=== PATIENT | male | born 1965 | race Caucasian/White ===

== ENCOUNTER 2023-08-05 14:02 | Emergency (ER) | payer OTHER, SELFPAY ==
[2023-08-05 14:23] VITALS: BP 150/100; PULSE 97; RESP 18; TEMP 36.7; O2SAT 97; BMI 31.0
--- NOTE | 2023-08-05 14:51 | CT_ITS ---
[address] [address] Patient Name: ANTONELLA SOTO MRN: [id number] date: 1965 Sex: M Assigned Patient Location: ER Current Patient Location: ER Accession/Order Number: [id number] Exam Date: 08/05/2023 15:09 Report Date: 08/05/2023 15:32 At the request of: NATHAN TAFOYA Procedure: CT cervical spine wo con EXAMINATION: CT cervical spine wo con TECHNIQUE: Axial CT images were obtained through the cervical spine. Sagittal and coronal reformatted images were also obtained. Dose reduction techniques were achieved by using automated exposure control and/or adjustment of mA and/or kV according to patient size and/or use of iterative reconstruction technique. HISTORY: Cervical radiculopathy. COMPARISON: None. FINDINGS: Bones: No fracture Alignment: The alignment is anatomic. No acute subluxation. Arthritic changes: Moderate spondylosis of the lower cervical spine. Disc spaces: No gross disc herniation given limitation of CT scan. Soft tissues: No soft tissue mass or large hematoma. CT/CT cervical spine wo con IMPRESSION: No acute fracture or subluxation. Electronically authenticated by: KUSH CHAU Date: 08/05/2023 15:32
--- NOTE | 2023-08-05 14:52 | ED.GENADUL1 ---
HPI - General Adult General Chief complaint: Extremity Injury, Upper Stated complaint: LEFT ARM PAIN Time Seen by Provider: 08/05/23 14:45 Source: patient Mode of arrival: walk-in Limitations: no limitations History of Present Illness HPI narrative: Patient is a 58-year-old male who presents to the emergency department for 2-week history of pain in the left upper extremity. Patient states he has been having ongoing pain to the left trapezius area radiating into the left shoulder and down the left arm. He feels as though the Arm swells and he occasionally feels as though his hand is red. Pain is worse with movement of the left shoulder. He was seen by his [place] doctor who told him that there was nothing wrong. 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 He was referred to orthopedics but states he has been calling the office every day for 2 weeks and no one has picked up. He has no falls or injuries. He received a shot of Toradol at the [place] and at [facility] department and was not discharged home with any medications. He also takes medications for gout, metformin and cholesterol. Related Data Previous Rx's Medication Instructions Recorded gabapentin 100 mg capsule 100 mg PO BID #14 caps 08/05/23 methocarbamol 750 mg tablet 750 mg PO TID PRN pain #20 tabs 08/05/23 methylprednisolone 4 mg tablets in See Rx Instructions .Route 08/05/23 a dose pack (Medrol (Tad)) .COMPLEX #21 ea Allergies Allergy/AdvReac Type Severity Reaction Status Date / Time No Known Drug Allergies Allergy Verified 08/05/23 14:23 Review of Systems ROS Constitutional Denies: fever or chills Ears, nose, mouth, and throat Denies: throat pain, neck pain or nasal congestion Cardiovascular Denies: chest pain Respiratory Denies: shortness of breath or cough Gastrointestinal Denies: nausea or vomiting Genitourinary Denies: painful urination Musculoskeletal Reports: extremity pain and extremity swelling; Denies: back pain or neck pain Integumentary/Breast Denies: rash Neurological Denies: headache Hematologic/Lymphatic Denies: easy bruising or easy bleeding PFSH PFSH Social History Smoking status: Former smoker Exam Narrative Exam Narrative: Gen.: Awake, alert, in no distress Head: Normocephalic, atraumatic ENT: Moist mucous membranes; Tenderness over the left trapezius muscle of the left shoulder with no bony point tenderness of the posterior cervical spine Respiratory: No respiratory distress Extremities: Pain with range of motion at the left shoulder, tenderness over the left trapezius muscle. 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 Psych: Normal mood and affect Neuro: No focal neuro deficit Skin: Warm, dry, intact Constitutional Vital Signs, click to edit/add: Last Vital Signs Temp 98.0 F 08/05/23 14:23 Pulse 97 H 08/05/23 14:23 Resp 18 08/05/23 14:23 BP 150/100 H 08/05/23 14:23 Pulse Ox 97 08/05/23 14:23 O2 Del Method Room Air 08/05/23 14:23 Course Vital Signs Vital signs: Vital Signs Temperature 98.0 F 08/05/23 14:23 Pulse Rate 97 H 08/05/23 14:23 Respiratory Rate 18 08/05/23 14:23 Blood Pressure 150/100 H 08/05/23 14:23 Pulse Oximetry 97 08/05/23 14:23 Oxygen Delivery Method Room Air 08/05/23 14:23 Temperature 98.0 F 08/05/23 14:23 Pulse Rate 97 H 08/05/23 14:23 Respiratory Rate 18 08/05/23 14:23 Blood Pressure 150/100 H 08/05/23 14:23 Pulse Oximetry 97 08/05/23 14:23 Oxygen Delivery Method Room Air 08/05/23 14:23 Medical Decision Making MDM Narrative Medical decision making narrative: Patient with moderate spondylosis of the lower cervical spine. His exam is consistent with cervical radiculopathy, possibly a pinched nerve. I explained this to him at the bedside. He is discharged home on medications to help with symptoms, he is given a Medrol Dosepak, gabapentin 3 times daily and a muscle relaxant. Follow-up with PCP and return to the ER if symptoms change or worsen. He is referred to local orthopedics, Dr. Haji and an appointment was set up for him for 10 AM on Friday. Return to the emergency department if symptoms change or worsen. Medical Records Medical records reviewed: Yes I reviewed the patient's medical records Imaging Data CT cervical: Attestation: I have reviewed the pertinent imaging results. Radiologist's impression: ITS Impressions Cervical Spine CT 08/05/23 14:51 IMPRESSION: No acute fracture or subluxation. Electronically authenticated by: KUSH CHAU Date: 08/05/2023 15:32 Discharge Plan Discharge Chief Complaint: Extremity Injury, Upper Clinical Impression: Cervical radiculopathy Patient Disposition: Home, Self-Care Time of Disposition Decision: 16:54 Condition: Good Prescriptions / Home Meds: New methocarbamol 750 mg tablet 750 mg PO TID PRN (Reason: pain) Qty: 20 0RF methylprednisolone [Medrol (Tad)] 4 mg tablets,dose pack See Rx Instructions .ROUTE .COMPLEX Qty: 21 0RF Rx Instructions: Taper as directed gabapentin 100 mg capsule 100 mg PO BID Qty: 14 0RF Instructions: Cervical Radiculopathy (ED) Additional Instructions: Please follow up with Dr. Haji's office on Friday at 10am Stand Alone Forms: Portal Instructions Referrals: Physician,Non-Staff, [Primary Care Provider] - 1 week Lewis Haji MD [Physician] - 08/11/23 10:00 am
== END 2023-08-05 17:15 | disposition home or self-care (01) ==
PROVIDERS: Emergency Provider Emergency Medicine Emergency Medical Services
DX: M47.22 Other spondylosis with radiculopathy, cervical region (principal); M10.9 Gout, unspecified; Z79.84 Long term (current) use of oral hypoglycemic drugs; Z87.891 Personal history of nicotine dependence
CPT/HCPCS: 72125; 99284

== ENCOUNTER 2023-08-15 08:42 | Outpatient (OUT) | payer SELFPAY ==
--- NOTE | 2023-08-15 | XR_ITS ---
The [address] [address] Patient Name: ANTONELLA SOTO MRN: [id number] date: 1965 Sex: M Assigned Patient Location: Current Patient Location: Accession/Order Number: [id number] Exam Date: 08/15/2023 08:45 Report Date: 08/15/2023 11:29 At the request of: ANCA EDWARDS Procedure: XR cervical spine 5V EXAMINATION: XR cervical spine 5V HISTORY: NECK PAIN COMPARISON: No relevant comparison available. FINDINGS: BONES: Neutral projection demonstrates 2 mm retrolisthesis of C5 in relation to C6. Moderate degenerative spondylosis and facet osteoarthropathy DISC SPACES: Multilevel disc space narrowing most C5-C6 PARASPINOUS: Negative. No paraspinous abnormality is seen. OTHER: No transient spondylolisthesis with flexion or extension. XR/XR cervical spine 5V IMPRESSION: Moderate degenerative changes C5-C6 Electronically authenticated by: CASEY CLOUD Date: 08/15/2023 11:29
--- OUTSIDE RECORDS SUMMARY | 2023-08-15 08:46 | XMS_ITS | CCD ---
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 Name Role Phone REQUEST, DR NONE LISTED Primary Care Unavaila wiliam POWER, DR RAMOS Admitting Unavailable TONO, DR RAMOS Attending Unavailable TONO, DR RAMOS Consulting Unavailable Karie Figueroa Consulting Unavailable REQUEST, NONE LISTED Primary Care Unavaila wiliam MENARD, RUSTY Admitting Unavailable DERIAN, RUSTY Attending Unavailable DERIAN, RUSTY Consulting Unavailable NIKI, DR ASHLEE Garcia Consulting Unavailable NIKI, DR ASHLEE Garcia Admitting Unavailable REQUEST, NONE LISTED Primary Care Unavailsusanne PRINCE, DR ASHLEE Garcia Attending Unavailable Lily Yin Consulting Unavailable Pascale Larios Unavailable DO Rajan Andersen Primary Care Provider DO Ish Carty Emergency Provider SUHAS Gavin Emergency Provider Lupe Gavin Admitting Unavailable Lupe Gavin Attending Unavailable Rajan Andersen Primary Care Unavailable Ish Carty Admitting Unavailable Ish Carty Attending Unavailable Rajan Andersen Primary Care Unavailable RAJAN ANDERSEN Primary Care Unavailable CASEY BOUCHER Attending Unavailable CASEY BOUCHER Referring Unavailable RAJAN ANDERSEN Primary Care Unavailable Allergies Allergy Classification Reported Allergen(s) Allergy Type Date of Onset Reaction(s) Facility (4 sources) Ammonia; Translations: [ammonia] Drug Allergy 1 Difficulty Breathing [facility] (4 sources) Bleach (Sodium Hypochlorite); Translations: [Bleach (Sodium Hypochlorite)] Allergy to substance 1 Difficulty Breathing [facility] Medications Current Medications Medication Drug Class(es) Dates Sig (Normalized) Sig (Original) 12 hr guaiFENesin 1200 mg extended release oral tablet (1 source) Start: 03-24-2023 take 1 tablet by mouth twice daily, then take 1 tablet by mouth every twelve hours Guaifenesin (Mucinex) 1,200 mg tablet extended release 12hr Active 1200 MG PO Twice daily March 24, 2023 12:00am ketorolac tromethamine 10 mg oral tablet (1 source) Nonsteroidal Anti-inflammatory Drug, Cyclooxygenase Inhibitor Ketorolac Tromethamine 10 MG Oral for 2 Days Active omeprazole 10 mg delayed release oral capsule (1 source) Proton Pump Inhibitor Start: 10-19-2021 take 1 capsule by mouth once daily Omeprazole 10 MG 1 capsule 30 minutes before morning meal Orally Once a day for 30 day(s) October, Active 12 hr orphenadrine citrate 100 mg extended release oral tablet (1 source) Muscle Relaxant Orphenadrine Citrate ER 100 MG Oral for 5 Days Active Problems Active Problems Problem Classification Problem Date Documented Date Episodic/Chronic Other lower respiratory disease (2 sources) Hemoptysis; Translations: [Hemoptysis] 12-25-2022 Episodic Other nervous system disorders (1 source) Other chronic pain; Translations: [OTHER CHRONIC PAIN] Onset: 04-02-2021 Chronic Other nervous system disorders (1 source) Unspecified mononeuropathy of bilateral lower limbs; Translations: [UNS MONONEUROPATHY ISIDRO LOWER LIMBS] Onset: 04-02-2021 Chronic Other non-traumatic joint disorders (1 source) Pain in right shoulder; Translations: [Pain in right shoulder] Onset: 07-22-2023 Episodic Other non-traumatic joint disorders (1 source) Pain in left shoulder; Translations: [Pain in left shoulder] Onset: 07-22-2023 Episodic Other non-traumatic joint disorders (1 source) Shoulder pain Onset: 07-22-2023 Episodic Spondylosis; intervertebral disc disorders; other back problems (1 source) Spondylosis without myelopathy or radiculopathy, lumbosacral region; Translations: [SPONDYLS W/O MYELO-/RADICULOP LS] Onset: 04-02-2021 Chronic Unclassified (3 sources) LOW BACK PAIN, UNSPECIFIED; Translations: [LOW BACK PAIN, UNSPECIFIED] Onset: 04-02-2021 Unclassified (1 source) Cough, unspecified; Translations: [Cough, unspecified] Onset: 03-24-2023 Unclassified (1 source) ill Onset: 07-22-2023 Viral infection (1 source) Disease caused by 2019-nCoV; Translations: [COVID-19] 03-24-2023 Episodic Viral infection (1 source) COVID-19; Translations: [COVID-19] Onset: 10-08-2020 Past or Other Problems Problem Classification Problem Date Documented Da te Episodic/Chronic Nausea and vomiting (4 sources) Nausea with vomiting, unspecified; Translations: [NAUSEA WITH VOMITING UNSPECIFIED] Onset: 10-05-2020 Episodic Nonspecific chest pain (3 sources) Chest pain; Translations: [Chest pain, unspecified] Onset: 12-25-2022 12-25-2022 Episodic Other lower respiratory disease (4 sources) Cough; Translations: [COUGH] Onset: 09-28-2020 Episodic Other lower respiratory disease (1 source) Shortness of breath; Translations: [SHORTNESS OF BREATH] Onset: 10-02-2020 Episodic Other lower respiratory disease (1 source) Hemoptysis; Translations: [Hemoptysis] Onset: 12-25-2022 Episodic Sprains and strains (1 source) Unspecified sprain of left wrist, subsequent encounter Onset: 10-26-2021 Resolved: 10-26-2021 Episodic Unclassified (1 source) LOW BACK PAIN, UNSPECIFIED; Translations: [LOW BACK PAIN, UNSPECIFIED] Onset: 03-30-2021 Results Test Name Value Interpretation Reference Range Facility XR SHOULDER LT MIN 2 VWSon 0 07-22-2023 XR SHOULDER LT MIN 2 VWS XR SHOULDER LT MIN 2 VWS CLINICAL INFORMATION: shoulder pain TECHNIQUE: XR SHOULDER LT MIN 2 VWS 3 views left shoulder were obtained. AC joint degenerative changes noted. Humeral head shows normal articulation with the glenoid. There is no fracture or dislocation. IMPRESSION: AC joint degenerative changes. Finalized by Rickey Rangel MD on 07/22/2023 8:[address] [facility] BioFire Detectedon 3 BioFire Detected Detected Critically abnormal Not Detecte [facility] Comment on above: Result Comment: This is a duplicate RP2.1 COVID (PCR) result to be used for statistical tracking purpose only. PERFORMED BY: [facility] [address] [facility] [address] PATHOLOGIST PLANNING TECHNICIAN BEBA MCKEON M.D. Performed By: #### C BC, PT, BNP, CK, DDIMER, HS TROP, BMP, PTT #### [facility] [address] [place] [address] [facility] COVID-19 Detected/Not Detect edOrdered By: Lupe Gavin on 03-24-2023 SARS-CoV-2 (COVID-19) RNA DIVYA+non-probe Ql (Nph) Detected Not Detecte [facility] Comment on above: This is a duplicate RP2.1 COVID (PCR) result to be used for statistical tracking purpose only. Respiratory (Upper) Panel, P CRon 03-24-2023 Respiratory (Upper) Panel, PCR Results called at 1707 on 03/24/23. Adenovirus Not detected Bordetella parapertussis Not detected Chlamydia pneumoniae Not detected Coronavirus 229E Not detected Coronavirus HKU1 Not detected Coronavirus NL63 Not detected Coronavirus OC43 Not detected Influenza A Not detected Influenza B Not detected Human Metapneumovirus Not detected Mycoplasma pneumoniae Not detected Parainfluenza Virus 1 Not detected Parainfluenza Virus 2 Not detected Parainfluenza Virus 3 Not detected Parainfluenza Virus 4 Not detected Bordetella pertussis-ptxP Not detected Human Rhino/Enterovirus Not detected Resp. Syncytial Virus Not detected COVID19 Blank Space -- COVID19 Det Results Detected results will only be called to COVID19 Det Results Providers for the following groups of patients: COVID19 Det Results Pre-Surgical Testing, Emergency Room, and Inpatients. COVID19 Blank Space -- COVID-19 Detected/Not Detected Detected Blank Space -- FLUA TEST INCLUDES Influenza A tests for the following clinically FLUA TEST INCLUDES significant subtypes: FLUA TEST INCLUDES - Influenza A FLUA TEST INCLUDES - Influenza A H1 FLUA TEST INCLUDES - Influenza A H1 2009 FLUA TEST INCLUDES - Influenza A H3 Blank Space -- PERFORMED BY: [place] [address] PATHOLOGIST PLANNING TECHNICIAN BEBA MCKEON M.D. [facility] Comment on above: Performed By: #### C BC, PT, BNP, CK, DDIMER, HS TROP, BMP, PTT #### [facility] [address] [place] [address] Respiratory pathogens DNA an d RNA panel - Nasopharynx by DIVYA with non-probe detectionOrdered By: Lupe Gavin on 03-24-2023 Respiratory pathogens DNA and RNA panel DIVYA+non-probe (Nph) [facility] Activated partial thrombopla stin time (aPTT) in platelet poor plasma by coagulation aOrdered By: Ish Carty on 12-25-2022 aPTT Coag (PPP) [Time] 26.7 s 25.1-36.5 [facility] B-Type Natriuretic Peptideon 12-25-2022 Natriuretic peptide B (Bld) [Mass/Vol] 3.0 pg/mL Low 5-100 [facility] Comment on above: Result Comment: PERF ORMED BY: [place] [address] PATHOLOGIST PLANNING TECHNICIAN BEBA MCKEON M.D. Performed By: #### C BC, PT, BNP, CK, DDIMER, HS TROP, BMP, PTT #### [place] [id number] [facility] Basic Metabolic Panelon 12-14 Anion gap [Moles/Vol] 11.4 mmol/L Normal 6.0-15.0 [facility] Comment on above: Performed By: #### C BC, PT, BNP, CK, DDIMER, HS TROP, BMP, PTT #### [facility] [address] Calcium [Mass/Vol] 9.2 mg/dL Normal 8.6-10.3 [facility] Comment on above: Performed By: #### C BC, PT, BNP, CK, DDIMER, HS TROP, BMP, PTT #### [facility] [address] Chloride [Moles/Vol] 103 mmol/L Normal 98-107 [facility] Comment on above: Performed By: #### C BC, PT, BNP, CK, DDIMER, HS TROP, BMP, PTT #### [facility] [address] CO2 [Moles/Vol] 26.9 mmol/L Normal 21.0-31.0 [facility] Comment on above: Performed By: #### C BC, PT, BNP, CK, DDIMER, HS TROP, BMP, PTT #### [facility] [address] Creatinine [Mass/Vol] 0.83 mg/dL Normal 0.70-1.30 [facility] Comment on above: Performed By: #### C BC, PT, BNP, CK, DDIMER, HS TROP, BMP, PTT #### [facility] [address] Creatinine Clr Calc Pharmacy 118.20 Normal [facility] Comment on above: Result Comment: PERF ORMED BY: [place] [address] PATHOLOGIST PLANNING TECHNICIAN BEBA MCKEON M.D. Performed By: #### C BC, PT, BNP, CK, DDIMER, HS TROP, BMP, PTT #### [address] GFR/1.73 sq M.predicted MDRD (S/P/Bld) [Vol rate/Area] mL/min/{1.73_m2} Normal [facility] Comment on above: Performed By: #### C BC, PT, BNP, CK, DDIMER, HS TROP, BMP, PTT #### [facility] [address] Glucose [Mass/Vol] 274 mg/dL High 70-100 [facility] Comment on above: Result Comment: [facility] Glucose Reference Range is dependent on time and content of last meal. Glucose of more than 200 mg/dL in a nonstressed, ambulatory subject supports the diagnosis of Diabetes Mellitus. ADA recommended reference range Performed By: #### C BC, PT, BNP, CK, DDIMER, HS TROP, BMP, PTT #### [facility] [address] Potassium [Moles/Vol] 4.3 mmol/L Normal 3.5-5.1 [facility] Comment on above: Performed By: #### C BC, PT, BNP, CK, DDIMER, HS TROP, BMP, PTT #### [facility] [address] [place] [address] Sodium [Moles/Vol] 137 mmol/L Normal 136-145 [facility] Comment on above: Performed By: #### C BC, PT, BNP, CK, DDIMER, HS TROP, BMP, PTT #### [facility] [address] Urea nitrogen [Mass/Vol] 15 mg/dL Normal 7-25 [facility] Comment on above: Performed By: #### C BC, PT, BNP, CK, DDIMER, HS TROP, BMP, PTT #### [facility] [address] [place] [address] [place] Basophils Auto (Bld) [#/Vol] Ordered By: Ish Carty on 12-25-2022 Basophils (Bld) [#/Vol] 0.0 10*3/uL 0.0-0.2 [facility] Basophils/100 WBC Auto (Bld) Ordered By: Ish Carty on 12-25-2022 Basophils/100 WBC (Bld) 0.6 % . [facility] CT chest wo conon 12-25-2022 CT chest wo con [facility] [place] [address] [place] [address] CT Scan Report Signed Patient: Antonella Richter MR#: [id number] : 1965 Acct:[id number] Age/Sex: 57 / M ADM Date: 12/25/22 Loc: ER Room: Type: [facility] ER Attending Dr: Copies to: Ish Carty DO Ordering Provider: Ish Carty DO Date of Service: 12/25/22 CT/CT chest wo con: chest pain CT CHEST WITHOUT CONTRAST COMPARISON: Chest x-ray 12/25/2022 CLINICAL DATA: Left-sided chest pain and hemoptysis. Spiral images were obtained through the chest without contrast. Images were reviewed using both narrow and wide window settings. This CT exam was performed using one or more following dose reduction techniques: Automated exposure control, adjustment of the mA and/or kV according to patient size, or use of iterative reconstruction technique. The heart is within normal limits for size. There is no pericardial effusion. There is minimal coronary artery plaque. No aortic aneurysm is identified. No enlarged lymph nodes are seen. There is subtle levoscoliotic curvature and minor endplate spurring. There is elevation of the right hemidiaphragm. Bibasilar atelectasis and/or scarring is noted. There is no additional consolidation. No pleural effusion or pneumothorax is seen. No pulmonary nodularity is noted. Images through the upper abdomen show no contributory findings. CT/CT chest wo con IMPRESSION: BIBASILAR ATELECTASIS AND/OR SCARRING. NO OTHER ACUTE FINDINGS. Impression dictated by: Lilibeth Bunn M.D.12/25/2022 1:05 PM Dictation Location: [place] [address] Transcribed By: [facility] 12/25/22 1305 Dictated By: Lilibeth Bunn MD 12/25/22 1249 Signed By: 12/25/22 1305 Normal [facility] Calcium [Mass/volume] in Ser um or PlasmaOrdered By: Ish Carty on 12-25-2022 Calcium [Mass/Vol] 9.2 mg/dL 8.6-10.3 [facility] Carbon dioxide, total [Moles /volume] in Serum or PlasmaOrdered By: Ish Carty on 12-25-2022 CO2 [Moles/Vol] 26.9 mmol/L 21.0-31.0 [facility] Chloride [Moles/volume] in S vic or PlasmaOrdered By: Ish Carty on 12-25-2022 Chloride [Moles/Vol] 103 mmol/L 98-107 [facility] Complete Blood Count Auto Di ffon 12-25-2022 Basophils (Bld) [#/Vol] 0.0 10*3/uL Normal 0.0-0.2 [facility] Comment on above: Result Comment: PERF ORMED BY: [place] [address] PATHOLOGIST PLANNING TECHNICIAN BEBA MCKEON M.D. Performed By: #### C BC, PT, BNP, CK, DDIMER, HS TROP, BMP, PTT #### [address] Basophils/100 WBC (Bld) 0.6 % Normal . [facility] Comment on above: Performed By: #### C BC, PT, BNP, CK, DDIMER, HS TROP, BMP, PTT #### [address] Eosinophils (Bld) [#/Vol] 0.1 10*3/uL Normal 0.0-0.45 [facility] Comment on above: Performed By: #### C BC, PT, BNP, CK, DDIMER, HS TROP, BMP, PTT #### [address] Eosinophils/100 WBC (Bld) 1.1 % Normal . [facility] Comment on above: Performed By: #### C BC, PT, BNP, CK, DDIMER, HS TROP, BMP, PTT #### [address] Erythrocyte distribution width (RBC) [Ratio] 12.6 % Normal 12.0-14.8 [facility] Comment on above: Performed By: #### C BC, PT, BNP, CK, DDIMER, HS TROP, BMP, PTT #### [address] Hematocrit (Bld) [Volume fraction] 43.4 % Normal 38.8-50.0 [facility] Comment on above: Performed By: #### C BC, PT, BNP, CK, DDIMER, HS TROP, BMP, PTT #### [address] Hemoglobin (Bld) [Mass/Vol] 15.1 g/dL Normal 13.0-17.0 [facility] Comment on above: Performed By: #### C BC, PT, BNP, CK, DDIMER, HS TROP, BMP, PTT #### [address] Lymphocytes (Bld) [#/Vol] 1.7 10*3/uL Normal 1.00-4.8 [facility] Comment on above: Performed By: #### C BC, PT, BNP, CK, DDIMER, HS TROP, BMP, PTT #### [address] Lymphocytes/100 WBC (Bld) 29.4 % Normal . [facility] Comment on above: Performed By: #### C BC, PT, BNP, CK, DDIMER, HS TROP, BMP, PTT #### [address] MCH (RBC) [Entitic mass] 31.0 pg Normal 27.5-35.2 [facility] Comment on above: Performed By: #### C BC, PT, BNP, CK, DDIMER, HS TROP, BMP, PTT #### [address] MCV (RBC) [Entitic vol] 88.8 fL Normal 83.5-101 [facility] Comment on above: Performed By: #### C BC, PT, BNP, CK, DDIMER, HS TROP, BMP, PTT #### [address] [place] [address] [place] Mean Corpuscular HGB Conc 34.9 g/dL Normal 32.5-35.6 [facility] Comment on above: Performed By: #### C BC, PT, BNP, CK, DDIMER, HS TROP, BMP, PTT #### [address] Monocytes (Bld) [#/Vol] 0.3 10*3/uL Normal 0.0-0.8 [facility] Comment on above: Performed By: #### C BC, PT, BNP, CK, DDIMER, HS TROP, BMP, PTT #### [address] Monocytes/100 WBC (Bld) 15.17 % Normal 0.00-20.00 [facility] Comment on above: Performed By: #### C BC, PT, BNP, CK, DDIMER, HS TROP, BMP, PTT #### [address] Monocytes/100 WBC (Bld) 5.5 % Normal . [facility] Comment on above: Performed By: #### C BC, PT, BNP, CK, DDIMER, HS TROP, BMP, PTT #### [address] Neutrophils (Bld) [#/Vol] 3.6 10*3/uL Normal 1.8-7.7 [facility] Comment on above: Performed By: #### C BC, PT, BNP, CK, DDIMER, HS TROP, BMP, PTT #### [address] Neutrophils/100 WBC (Bld) 63.4 % Normal . [facility] Comment on above: Performed By: #### C BC, PT, BNP, CK, DDIMER, HS TROP, BMP, PTT #### [address] NRBC% 0.1 /100{WBC} Normal 0-0.5 [facility] Comment on above: Performed By: #### C BC, PT, BNP, CK, DDIMER, HS TROP, BMP, PTT #### [facility] [address] Platelet mean volume (Bld) [Entitic vol] 7.9 fL Normal 6.6-10.1 [facility] Comment on above: Performed By: #### C BC, PT, BNP, CK, DDIMER, HS TROP, BMP, PTT #### [facility] [address] Platelets (Bld) [#/Vol] 235 10*3/uL Normal 150-450 [facility] Comment on above: Performed By: #### C BC, PT, BNP, CK, DDIMER, HS TROP, BMP, PTT #### [facility] [address] RBC (Bld) [#/Vol] 4.88 10*6/uL Normal 3.90-5.60 [facility] Comment on above: Performed By: #### C BC, PT, BNP, CK, DDIMER, HS TROP, BMP, PTT #### [address] WBC (Bld) [#/Vol] 5.7 10*3/uL Normal 4.1-10.5 [facility] Comment on above: Performed By: #### C BC, PT, BNP, CK, DDIMER, HS TROP, BMP, PTT #### [address] Creatine Kinaseon 12-25-2022 CK [Catalytic activity/Vol] 63 U/L Normal 30-223 [facility] Comment on above: Performed By: #### C BC, PT, BNP, CK, DDIMER, HS TROP, BMP, PTT #### [address] Creatine kinase [Enzymatic a ctivity/volume] in Serum or PlasmaOrdered By: Ish Carty on 12-25-2022 CK [Catalytic activity/Vol] 63 U/L 30-223 [facility] Creatinine [Mass/volume] in Serum or PlasmaOrdered By: Ish Carty on 12-25-2022 Creatinine [Mass/Vol] 0.83 mg/dL 0.70-1.30 [facility] D-Dimer High Sensitivityon 0 12-25-2022 D-Dimer High Sensitivity < 200 Normal 0-243 [facility] Comment on above: Result Comment: The reference range for D-dimer is <243 ng/mL D-dimer units. D-dimer results must be used in conjunction with a clinical pretest probability (PTP) assessment model for deep vein thrombosis (DVT) and pulmonary embolism (PE). Results <230 ng/mL d-dimer units can be used as a negative predictor in patients with low or moderate probability for DVT/PE. Results above the exclusion threshold of 230 ng/ml D-dimer units for DVT/PE may indicate the need for further diagnostic testing. D-Dimer can be increased in hospitalized patients due to co-morbid conditions. PERFORMED BY: [place] [address] PATHOLOGIST PLANNING TECHNICIAN BEBA MCKEON M.D. Performed By: #### C BC, PT, BNP, CK, DDIMER, HS TROP, BMP, PTT #### [address] ECG 12 lead ECGon 12-25-2022 ECG 12 lead ECG [facility] [place] [address] Electrocardiograph Report Signed Patient: Antonella Richter MR#: [id number] : 1965 Acct:[id number] Age/Sex: 57 / M ADM Date: 12/25/22 Loc: ER Room: Type: [facility] ER Attending Dr: Ordering Provider: Ish Carty DO Date of Service: 12/25/2206/07/1033 ECG/ECG 12 lead ECG: Chest Pain Copies to: Test Reason : Blood Pressure : 120/072 mmHG Vent. Rate : 085 BPM Atrial Rate : 085 BPM P-R Int : 150 ms QRS Dur : 084 ms QT Int : 366 ms P-R-T Axes : 043 021 030 degrees QTc Int : 435 ms Normal sinus rhythm Nonspecific ST and T wave abnormality Abnormal ECG No previous ECGs available Confirmed by Ish Carty DO ([id number]) on 12/25/2022 3:29:52 PM Referred By: Electronically Signed By:Ish Carty DO Transcribed By: [facility] Signed By Ish Carty DO 3 1529 Normal [facility] Eosinophils Auto (Bld) [#/Vo l]Ordered By: Ish Carty on 12-25-2022 Eosinophils (Bld) [#/Vol] 0.1 10*3/uL 0.0-0.45 [facility] Eosinophils/100 WBC Auto (Bl d)Ordered By: Ish Carty on 12-25-2022 Eosinophils/100 WBC (Bld) 1.1 % . [facility] Erythrocyte distribution wid th Auto (RBC) [Ratio]Ordered By: Ish Carty on 12-25-2022 Erythrocyte distribution width (RBC) [Ratio] 12.6 % 12.0-14.8 [facility] Glucose [Mass/volume] in Ser um or PlasmaOrdered By: Ish Carty on 12-25-2022 Glucose [Mass/Vol] 274 mg/dL 70-100 [facility] Comment on above: ADA recommended refe rence rangeRandom Glucose Reference Range is dependent on time and content of last meal. Glucose of more than 200 mg/dL in a nonstressed, ambulatory subject supports the diagnosis of Diabetes Mellitus. Hematocrit Auto (Bld) [Volum e fraction]Ordered By: Ish Carty on 12-25-2022 Hematocrit (Bld) [Volume fraction] 43.4 % 38.8-50.0 [facility] Hemoglobin [Mass/volume] in BloodOrdered By: Ish Carty on 12-25-2022 Hemoglobin (Bld) [Mass/Vol] 15.1 g/dL 13.0-17.0 [facility] Laboratory - CoagulationOrde red By: Ish Carty on 12-25-2022 PT Coag (PPP) [Time] 11.4 s 9.0-12.9 [facility] Leukocytes [#/volume] correc preethi for nucleated erythrocytes in Blood by Automated counOrdered By: Ish Carty on 12-25-2022 WBC corrected for nucl RBC Auto (Bld) [#/Vol] 5.7 10*3/uL 4.1-10.5 [facility] Lymphocytes Auto (Bld) [#/Vo l]Ordered By: Ish Carty on 12-25-2022 Lymphocytes (Bld) [#/Vol] 1.7 10*3/uL 1.00-4.8 [facility] Lymphocytes/100 WBC Auto (Bl d)Ordered By: Ish Carty on 12-25-2022 Lymphocytes/100 WBC (Bld) 29.4 % . [facility] MCH Auto (RBC) [Entitic mass ]Ordered By: Ish Carty on 12-25-2022 MCH (RBC) [Entitic mass] 31.0 pg 27.5-35.2 [facility] MCHC Auto (RBC) [Mass/Vol]Or dered By: Ish Carty on 12-25-2022 MCHC (RBC) [Mass/Vol] 34.9 g/dL 32.5-35.6 [facility] MCV Auto (RBC) [Entitic vol] Ordered By: Ish Carty on 12-25-2022 MCV (RBC) [Entitic vol] 88.8 fL 83.5-101 [facility] Monocyte distribution width [Entitic volume] in Blood by AutomatedOrdered By: Ish Carty on 12-25-2022 Monocyte distribution width Auto (Bld) [Entitic vol] 15.17 % 0.00-20.00 [facility] Monocytes Auto (Bld) [#/Vol] Ordered By: Ish Carty on 12-25-2022 Monocytes (Bld) [#/Vol] 0.3 10*3/uL 0.0-0.8 [facility] Monocytes/100 WBC Auto (Bld) Ordered By: Ish Carty on 12-25-2022 Monocytes/100 WBC (Bld) 5.5 % . [facility] Natriuretic peptide B [Mass/ Vol]Ordered By: Ish Carty on 12-25-2022 Natriuretic peptide B (Bld) [Mass/Vol] 3.0 pg/mL 5-100 [facility] Neutrophils Auto (Bld) [#/Vo l]Ordered By: Ish Carty on 12-25-2022 Neutrophils (Bld) [#/Vol] 3.6 10*3/uL 1.8-7.7 [facility] Neutrophils/100 WBC Auto (Bl d)Ordered By: Ish Carty on 12-25-2022 Neutrophils/100 WBC (Bld) 63.4 % . [facility] No Panel InformationOrdered By: Ish Carty on 12-25-2022 D-Dimer Quantitative (PE/DVT) < 200 ng/mL 0-243 [facility] Comment on above: The reference range for D-dimer is <243 ng/mL D-dimer units.D-dimer results must be used in conjunction with a clinicalpretest probability (PTP) assessment model for deep veinthrombosis (DVT) and pulmonary embolism (PE). Results <230ng/mL d-dimer units can be used as a negative predictor inpatients with low or moderate probability for DVT/PE.Results above the exclusion threshold of 230 ng/ml D-dimerunits for DVT/PE may indicate the need for furtherdiagnostic testing.D-Dimer can be increased in hospitalized patients due toco-morbid conditions. Estimated GFR (CKD-EPI) > 60.0 mL/Min [facility] Creatinine Clearance (Chem 118.20 [facility] Nucleated erythrocytes [Pres ence] in Blood by Automated countOrdered By: Ish Carty on 12-25-2022 Nucleated RBC Auto Ql (Bld) 0.1 /100{WBC} 0-0.5 [facility] Partial Thromboplastin Timeo n 12-25-2022 aPTT Coag (Bld) [Time] 26.7 s Normal 25.1-36.5 [facility] Comment on above: Performed By: #### C BC, PT, BNP, CK, DDIMER, HS TROP, BMP, PTT #### [facility] [address] Platelet mean volume Auto (B ld) [Entitic vol]Ordered By: Ish Carty on 12-25-2022 Platelet mean volume (Bld) [Entitic vol] 7.9 fL 6.6-10.1 [facility] Platelet poor plasma interna tional normalized ratio (INR) by coagulation assay (relatOrdered By: Ish Carty on 12-25-2022 INR Coag (PPP) [Relative time] 1.0 {INR} [facility] Comment on above: INR Therapeutic Rang e A) Pre- and Peroperative OAT started two weeks before surgery. NOT HIP SURGERY: 1.5 - 2.5 HIP SURGERY: 2 - 3B) Primary and secondary prevention of venous THROMBOSIS: 2 - 3C) Active venous thrombosis, pulmonary embolismand prevention of recurrent venous thrombosis: 2 - 3D) Prevention of arterial thromboembolismincluding patients with mechanical heart valves: 3 - 4.5 Platelets Auto (Bld) [#/Vol] Ordered By: Ish Carty on 12-25-2022 Platelets (Bld) [#/Vol] 235 10*3/uL 150-450 [facility] Potassium [Moles/volume] in Serum or PlasmaOrdered By: Ish Carty on 12-25-2022 Potassium [Moles/Vol] 4.3 mmol/L 3.5-5.1 [facility] Prothrombin Time INRon 12-25 INR Coag (PPP) [Relative time] 1.0 {INR} Normal [facility] Comment on above: Result Comment: INR Therapeutic Range A) Pre- and Peroperative OAT started two weeks before surgery. NOT HIP SURGERY: 1.5 - 2.5 HIP SURGERY: 2 - 3 B) Primary and secondary prevention of venous THROMBOSIS: 2 - 3 C) Active venous thrombosis, pulmonary embolism and prevention of recurrent venous thrombosis: 2 - 3 D) Prevention of arterial thromboembolism including patients with mechanical heart valves: 3 - 4.5 Performed By: #### C BC, PT, BNP, CK, DDIMER, HS TROP, BMP, PTT #### [facility] [address] PT Coag (PPP) [Time] 11.4 s Normal 9.0-12.9 [facility] Comment on above: Performed By: #### C BC, PT, BNP, CK, DDIMER, HS TROP, BMP, PTT #### [facility] [address] RBC Auto (Bld) [#/Vol]Ordere d By: Ish Carty on 12-25-2022 RBC (Bld) [#/Vol] 4.88 10*6/uL 3.90-5.60 [facility] Serum or plasma anion gap de terminationOrdered By: Ish Carty on 12-25-2022 Anion gap [Moles/Vol] 11.4 mmol/L 6.0-15.0 [facility] Sodium [Moles/volume] in Ser um or PlasmaOrdered By: Ish Carty on 12-25-2022 Sodium [Moles/Vol] 137 mmol/L 136-145 [facility] Troponin I High Sensitivityo n 12-25-2022 Troponin I High Sensitivity 2.6 pg/mL Normal 0.0-20.0 [facility] Comment on above: Result Comment: PERF ORMED BY: [place] [address] PATHOLOGIST PLANNING TECHNICIAN BEBA MCKEON M.D. Performed By: #### C BC, PT, BNP, CK, DDIMER, HS TROP, BMP, PTT #### [facility] [address] Troponin I.cardiac [Mass/vol ume] in Serum or Plasma by Detection limit <= 0.01 ng/Ordered By: Ish Carty on 12-25-2022 Troponin I.cardiac DL <= 0.01 ng/mL [Mass/Vol] 2.6 pg/mL 0.0-20.0 [facility] Urea nitrogen [Mass/volume] in Serum or PlasmaOrdered By: Ish Carty on 12-25-2022 Urea nitrogen [Mass/Vol] 15 mg/dL 7-25 [facility] WBC Auto (Bld) [#/Vol]Ordere d By: Ish Carty on 12-25-2022 WBC (Bld) [#/Vol] 5.7 10*3/uL 4.1-10.5 [facility] XR chest 2V*on 12-25-2022 XR chest 2V* [facility] Main [place] [address] [place] [id number] XRay Report Signed Patient: Antonella Richter MR#: [id number] : [id number] Acct:[id number] Age/Sex: 57 / M ADM Date: 12/25/22 Loc: ER Room: Type: PRE ER Attending Dr: Copies to: Ish Carty DO Ordering Provider: Ish Carty DO Date of Service: 12/25/22 XR/XR chest 2V*: Chest Pain Plain film chest 2 view HISTORY: Chest pain. Hemoptysis. COMPARISON: None FINDINGS: SUPPORT DEVICES: None POSTSURGICAL CHANGES: None HEART: Within normal limits PULMONARY HUBER: Within normal limits MEDIASTINUM: Unremarkable LUNGS AND PLEURA: No acute lung process, pleural effusion or pneumothorax identified. Basilar linear atelectasis/scarring. BONY STRUCTURES: Intact ADDITIONAL FINDINGS None XR/XR chest 2V* IMPRESSION: No acute process. Impression dictated by: Graham Boucher M.D.12/25/2022 11:54 AM Dictation Location: [place] [address] Transcribed By: [facility] 12/25/22 1154 Dictated By: Graham Boucher DO 12/25/22 115 Signed By: 12/25/[address] [facility] CT LSPINE WO CONon CT LSPINE WO CON CT LSPINE WO CON INDICATION: 56 years old; Male.DORSALGIA, UNSPECIFIED Symptom/Location/Duration: TECHNIQUE: CT of the lumbar spine.Contrast None. Sagittal and coronal images as well as axial reconstructions through the disc spaces were produced. 3-D reformats were created and reviewed for better evaluation of the lumbar spine alignment. Ionizing radiation dose reduced via iterative reconstruction/FBP blend and body size kV/mA adjustment. COMPARISON: None FINDINGS: POSTOPERATIVE CHANGES: None ALIGNMENT AND LORDOSIS: Normal lumbar lordosis. No subluxation. VERTEBRAE: No fracture. No lytic or blastic lesions. DISC LEVELS: L1-L2: No disc herniation. No spinal canal or foraminal narrowing. L2-L3: No disc herniation. No spinal canal or foraminal narrowing. L3-L4: No disc herniation. No spinal canal or foraminal narrowing. L4-L5: No disc herniation. No spinal canal or foraminal narrowing. L5-S1: Disc space narrowing, worse posteriorly. Disc bulging and endplate osteophyte formation. Facet degeneration. Neural foramina and lateral recesses are patent. LOWER THORACIC DISCS: No disc herniation. No spinal canal or foraminal narrowing. OTHER: Posterior paraspinal musculature has a normal appearance. Psoas muscles intact. IMPRESSION: 1. No disc herniation. No spinal canal or foraminal narrowing. Degenerative change at L5-S1. 2. No fracture or bony displacement. Electronically authenticated by: LILY YIN Date: 2021-03-30 02:43 Normal [facility] BNPon 09-28-2020 NT PRO BNP <11.0 Normal <=900.0 [facility] Comment on above: Performed By: #### C MP, HSTROPN, BNP #### [facility] [address] [place], [place] [id number] Juan Lilibeth CBC AUTO DIFFon 09-28-2020 BASO # 0.0 103/ul Normal 0.0-0.1 [facility] Comment on above: Performed By: #### C BC #### [facility] [address] [place] [address] Juan Lilibeth Basophils/100 WBC (Bld) 0.3 % Normal 0.2-2.0 [facility] Comment on above: Performed By: #### C BC #### [facility] [address] [place] [address] Juan Lilibeth EO # 0.0 103/ul Normal 0.0-0.7 [facility] Comment on above: Performed By: #### C BC #### [facility] [address] [place], [place] [id number] Juan Lilibeth Eosinophils/100 WBC (Bld) 0.0 % Critically low 0.9-7.0 [facility] Comment on above: Performed By: #### C BC #### [facility] [address] [place], [place] [id number] Juan Lilibeth Erythrocyte distribution width (RBC) [Ratio] 11.9 % Normal 11.0-15.0 [facility] Comment on above: Performed By: #### C BC #### [facility] [address] [place], [place] [id number] Juan Lilibeth Hematocrit (Bld) [Volume fraction] 42.7 % Normal 42.0-54.0 [facility] Comment on above: Performed By: #### C BC #### [facility] [address] [place] [address] Juan Lilibeth Hemoglobin (Bld) [Mass/Vol] 14.8 g/dL Normal 14.0-18.0 [facility] Comment on above: Performed By: #### C BC #### [facility] [address] [place] [address] Juan Lilibeth IG # 0.01 10e3/ul Normal 0.00-0.03 [facility] Comment on above: Performed By: #### C BC #### [facility] [address] [place] [address] Juan Lilibeth IG % 0.3 % Normal 0.0-0.5 [facility] Comment on above: Performed By: #### C BC #### [facility] [address] [place] [address] Juan Lilibeth LYMPH # 0.6 103/ul Critically low 1.2-3.8 [facility] Comment on above: Performed By: #### C BC #### [facility] [address] [place] [address] Juan Lilibeth Lymphocytes/100 WBC (Bld) 18.9 % Critically low 20.5-60.0 [facility] Comment on above: Performed By: #### C BC #### [facility] [address] [place] [address] Juan Lilibeth MANUAL DIFF REQ NO Normal [facility] Comment on above: Performed By: #### C BC #### [facility] [address] [place] [address] Juan Lilibeth MCH (RBC) [Entitic mass] 31.0 pg Normal 25.9-34.0 [facility] Comment on above: Performed By: #### C BC #### [facility] [address] [place] [address] Juan Lilibeth MCHC (RBC) [Mass/Vol] 34.7 g/dL Normal 29.9-35.2 [facility] Comment on above: Performed By: #### C BC #### [facility] [address] [place] [address] Juan Lilibeth MCV (RBC) [Entitic vol] 89.3 fL Normal 80.0-94.0 [facility] Comment on above: Performed By: #### C BC #### [facility] [address] [id number] Juan Mcelroy MONO # 0.2 103/ul Critically low 0.3-0.8 [facility] Comment on above: Performed By: #### C BC #### [facility] [address] [place] [address] Juan Mcelroy Monocytes/100 WBC (Bld) 6.8 % Normal 1.7-12.0 [facility] Comment on above: Performed By: #### C BC #### [facility] [address] [place] [address] Juan Mcelroy NEUT # 2.4 103/ul Normal 1.4-6.5 [facility] Comment on above: Performed By: #### C BC #### [facility] [address] [place] [address] Juan Mcelroy Neutrophils/100 WBC (Bld) 73.7 % Normal 43.0-75.0 [facility] Comment on above: Performed By: #### C BC #### [facility] [address] [place], [place] [id number] Juan Mcelroy Platelet mean volume (Bld) [Entitic vol] 9.6 fL Normal 9.5-13.5 [facility] Comment on above: Performed By: #### C BC #### [facility] [address] [place] [address] Juanhe Newtonen PLT 148 103/ul Critically low 150-450 [facility] Comment on above: Performed By: #### C BC #### [facility] [address] [place], [place] [id number] Juan Lilibeth RBC 4.78 106/ul Normal 4.70-6.10 [facility] Comment on above: Performed By: #### C BC #### [facility] [address] [place], [place] [id number] Juan Lilibeth WBC 3.2 103/ul Critically low 4.0-11.0 [facility] Comment on above: Performed By: #### C BC #### [facility] [address] [id number] Juan Mcelroy D-DIMERon 09-28-2020 D-DIMER 0.43 mg/L FEU Normal 0.19-0.50 [facility] Comment on above: Performed By: #### P T, DDIM, PTT #### [facility] [address] [place] [address] Juanhe Mcelroy D-DIMER COMMENTS SEE BELOW Normal [facility] Comment on above: Result Comment: Incr eases in D-Dimer concentration observed with thromboembolic events can be variable due to localization, size, and age of the thrombus. Therefore, a thromboembolic event cannot be diagnosed with certainty on the basis of the reference range. D-Dimers may also be elevated for a variety of disorders including: advanced age, , coronary disease, cancer, liver disease, infection, inflammation, hematoma, DIC, trauma, post-surgery, diabetes, thrombolytic or anticoagulant therapy, stress, and generalized hospitalization. Performed By: #### P T, DDIM, PTT #### [facility] [address] [place] [address] Juan Mcelroy LACTATE/LACTIC ACIDon 2020 Lactate [Moles/Vol] 1.6 mmol/L Normal 0.7-2.0 [facility] Comment on above: Performed By: #### L ACT ####[facility] [id number] [place] [id number] Mcelroy PROF 14(COMP METB)on 021 Albumin [Mass/Vol] 3.9 g/dL Normal 3.5-5.0 [facility] Comment on above: Performed By: #### C MP, HSTROPN, BNP #### [facility] [address] [id number] Juan Lilibeth Albumin/Globulin [Mass ratio] 1.1 {ratio} Normal [facility] Comment on above: Performed By: #### C MP, HSTROPN, BNP #### [facility] [address] [place] [address] Juan Lilibeth ALP [Catalytic activity/Vol] 109 U/L Normal 38-126 [facility] Comment on above: Performed By: #### C NAKITA HSTRDARBY, BNP #### [facility] [address] [place] [address] Juan Lilibeth ALT [Catalytic activity/Vol] 49 U/L Normal 21-72 [facility] Comment on above: Performed By: #### C NAKITA HSTROPN, BNP #### [facility] [address] [place] [address] Juan Lilibeth Anion gap [Moles/Vol] 16.0 mmol/L Normal [facility] Comment on above: Performed By: #### C NAKITA HSTROPN, BNP #### [facility] [address] [place] [address] Juan Lilibeth AST [Catalytic activity/Vol] 32 U/L Normal 17-59 [facility] Comment on above: Performed By: #### C NAKITA HSTREVETTEN, BNP #### [facility] [address] [place] [address] Juan Lilibeth Bilirubin [Mass/Vol] 0.7 mg/dL Normal 0.2-1.3 [facility] Comment on above: Performed By: #### C NAKITA HSTREVETTEN, BNP #### [facility] [address] [place] [address] Juan Lilibeth Calcium [Mass/Vol] 8.7 mg/dL Normal 8.4-10.2 [facility] Comment on above: Performed By: #### C NAKITA HSTROPN, BNP #### [facility] [address] [place] [address] Juan Lilibeth Chloride [Moles/Vol] 105 mmol/L Normal 98-107 [facility] Comment on above: Performed By: #### C NAKITA HSTROPN, BNP #### [facility] [address] [place] [address] Juan Lilibeth CO2 [Moles/Vol] 25.7 mmol/L Normal 22.0-30.0 [facility] Comment on above: Performed By: #### C MP, HSTROPN, BNP #### [facility] [address] [place], [place] [address] Juan Lilibeth Creatinine [Mass/Vol] 1.13 mg/dL Normal 0.66-1.25 [facility] Comment on above: Performed By: #### C MP, HSTROPN, BNP #### [facility] [address] [place], [place] [address] Juan Lilibeth EGFR-AF GHANAIAN >60 Normal >=60 [facility] Comment on above: Performed By: #### C MP, HSTROPN, BNP #### [facility] [address] [place] [id number] Juan Lilibeth EGFR-NON AF GHANAIAN >60 Normal >=60 [facility] Comment on above: Performed By: #### C MP, HSTROPN, BNP #### [facility] [address] [place] [address] Juan Lilibeth Globulin (S) [Mass/Vol] 3.5 g/dL Normal [facility] Comment on above: Performed By: #### C MP, HSTROPN, BNP #### [facility] [address] [place] [address] Juan Lilibeth Glucose [Mass/Vol] 161 mg/dL Critically high 74-[address] [facility] Comment on above: Performed By: #### C MP, HSTROPN, BNP #### [facility] [address] [id number] Juan Lilibeth Potassium [Moles/Vol] 3.7 mmol/L Normal 3.4-5.0 [facility] Comment on above: Performed By: #### C MP, HSTROPN, BNP #### [facility] [address] [id number] Juan Lilibeth Protein [Mass/Vol] 7.4 g/dL Normal 6.1-8.2 [facility] Comment on above: Performed By: #### C MP, HSTROPN, BNP #### [facility] [address] [place] [id number] Juan Lilibeth Sodium [Moles/Vol] 143 mmol/L Normal 137-145 [facility] Comment on above: Performed By: #### C MP, HSTROPN, BNP #### [facility] [address] [place] [address] Juanhe Newtonen Urea nitrogen [Mass/Vol] 21.0 mg/dL Critically high 9.0-20.0 [facility] Comment on above: Performed By: #### C MP, HSTROPN, BNP #### [facility] [address] [place] [address] Juanhe Newtonen Urea nitrogen/Creatinine [Mass ratio] 18.6 mg/mg Normal [facility] Comment on above: Performed By: #### C MP, HSTROPN, BNP #### [facility] [address] [place] [address] Juan Newtonen PROTIMEon 09-28-2020 INR Coag (PPP) [Relative time] 1.04 {INR} Normal [facility] Comment on above: Performed By: #### P T, DDIM, PTT #### [facility] [address] [place] [address] Juan Mcelroy INR GUIDELINES SEE BELOW Normal [facility] Comment on above: Result Comment: ISMAEL RED INR: 2.0 - 3.0 CONDITIONS NOT LISTED BELOW 2.5 - 3.5 FOR PROSTHETIC HEART VALVE REPLACEMENT 2.5 - 3.5 RECURRENT THROMBOSIS Performed By: #### P T, DDIM, PTT #### [facility] [address] [place] [address] Juan Mcelroy PT Coag (PPP) [Time] 11.3 s Normal 9.0-11.6 [facility] Comment on above: Performed By: #### P T, DDIM, PTT #### [facility] [address] [place] [address] Juan Mcelroy PTTon 09-28-2020 aPTT Coag (Bld) [Time] 26.0 s Normal 22.3-36.2 Th [facility] Comment on above: Performed By: #### P T, DDIM, PTT #### [facility] [address] [place] [address] Juanhe Newtonen Rapid Covid-19 PCR (CVDRPD)o n 09-28-2020 SARS-CoV-2 (COVID-19) RNA DIVYA+probe Ql (Unsp spec) Detected Critically abnormal NOT DETECTED [facility] Comment on above: Result Comment: This test is not yet approved or cleared by the [place] Food and Drug Administration (FDA). This test was developed by [employer], [place], [place]. The performance characteristics of this test were validated by [facility]. The results are not intended to be used as the sole means for clinical diagnosis or patient management decisions. [facility] is authorized under Clinical Laboratory Improvement Amendments (CLIA) to perform high- complexity testing. Performed By: #### C VDRPD #### [facility] [address] [place] [address] Juan Mcelroy TROPONIN, HIGH SENSITIVITYon 09-28-2020 HSTROP 10.3 pg/mL Normal 4.0-42.2 [facility] Comment on above: Result Comment: CUT- OFF POINTS HAVE BEEN ESTABLISHED BASED ON THE FOURTH UNIVERSAL DEFINITIONS OF MYOCARDIAL INFARCTION. THE UPPER REFERENCE LIMIT (URL) OF TROPONIN, DEFINED THE 99TH PERCENTILE OF cTnI DISTRIBUTION IN A REFERENCE POPULATION, HAS BEEN CONFIRMED THE DECISION THRESHOLD FOR MO DIAGNOSIS. Performed By: #### C MP, HSTROPN, BNP #### [facility] [address] [place], [place] [id number] Juan Mcelroy Vital Signs Date Time Vital Sign Value Performing Clinician Facility 03-24-2023 15:02-0400 Body height 176.53 cm DO Rajan Girma Work Phone: [facility] 03-24-2023 15:02-0400 Body temperature 97.7 [degF] DO Rajan Girma Work Phone: [facility] 03-24-2023 15:02-0400 Body weight 100.6 kg DO Rajan Andersen Work Phone: [facility] 03-24-2023 15:02-0400 Diastolic blood pressure 71 mm[Hg] DO Rajan Andersen Work Phone: [facility] 03-24-2023 15:02-0400 Heart rate 88 /min DO Rajan Girma Work Phone: [facility] 03-24-2023 15:02-0400 Respiratory rate 18 /min DO Rajan Girma Work Phone: [facility] 03-24-2023 15:02-0400 SaO2% (BldA) [Mass fraction] 97 % DO Rajan Girma Work Phone: [facility] 03-24-2023 15:02-0400 Systolic blood pressure 118 mm[Hg] DO Rajan Girma Work Phone: [facility] 12-25-2022 13:33-0400 Diastolic blood pressure 75 mm[Hg] DO Rajan Girma Work Phone: [facility] 12-25-2022 13:33-0400 Heart rate 71 /min DO Rajan Girma Work Phone: [facility] 12-25-2022 13:33-0400 Respiratory rate 18 /min DO Rajan Girma Work Phone: [facility] 12-25-2022 13:33-0400 SaO2% (BldA) [Mass fraction] 99 % DO Rajan Girma Work Phone: [facility] 12-25-2022 13:33-0400 Systolic blood pressure 115 mm[Hg] DO Rajan Girma Work Phone: [facility] 12-25-2022 10:28-0400 Body height 175.26 cm DO Rajan Girma Work Phone: [facility] 12-25-2022 10:28-0400 Body temperature 97.9 [degF] DO Rajan Girma Work Phone: [facility] 12-25-2022 10:28-0400 Body weight 101.7 kg DO Rajan Girma Work Phone: [facility] 10-26-2021 10:05-0400 Body height 176.53 cm Pascale Harriet Other [employer] Other 10-26-2021 10:05-0400 Body mass index (BMI) [Ratio] 31.73 kg/m2 Pascale Larios Other [employer] Other 10-26-2021 10:05-0400 Body temperature 97.5 [degF] Pascale Larios Other [employer] Other 10-26-2021 10:05-0400 Body weight 98.88 kg Pascale Larios Other [employer] Other 10-26-2021 10:05-0400 Diastolic blood pressure 75 mm[Hg] Pascale Larios Other [employer] Other 10-26-2021 10:05-0400 Respiratory rate 18 /min Pascale Larios Other [employer] Other 10-26-2021 10:05-0400 SaO2% (BldA) [Mass fraction] 97 % Pascale Lariso Other [employer] Other 10-26-2021 10:05-0400 Systolic blood pressure 124 mm[Hg] Pascale Larios Other [employer] Other Encounters Encounter Date Encounter Type Care Provider Facility Start: 07-22-2023 End: 07-23-2023 Emergency department patient visit RJAAN ANDERSEN [facility] Start: 07-22-2023 End: 07-23-2023 Emergency department patient visit CASEY BOUCHER [facility] Start: 03-24-2023 End: 03-24-2023 Emergency department patient visit Lupe Gavin Facility:[facility] Start: 03-24-2023 End: 03-24-2023 Emergency department patient visit DO Rajan Andersen Work Phone: [facility] Work Phone: Start: 12-25-2022 End: 12-25-2022 Emergency department patient visit Ish Carty Facility:[facility] Start: 12-25-2022 End: 12-25-2022 Emergency department patient visit DO Rajan Andersen Work Phone: [facility] Work Phone: Start: 10-26-2021 End: 10-26-2021 ambulatory Pascale Larios Other [employer] Other Start: 10-26-2021 Office outpatient vi sit 15 minutes Pascale Larios [facility] Start: 03-30-2021 End: 03-30-[address] ASHLEE PRINCE Facility: Start: 10-05-2020 End: 10-05-2020 ambulatory NONE LISTED REQUEST Facility: Start: 09-28-2020 End: 09-28-2020 ambulatory NONE LISTED REQUEST Facility: Procedures Date Procedure Procedure Detail Performing Clinician Start: 03-24-2023 Respiratory Panel (PCR) DO Rajan Andersen Work Phone: Start: 12-25-2022 CT of chest without contrast DO Rajan Girma Work Phone: Start: 12-25-2022 Plain chest X-ray DO Al ex Grima Work Phone: Plan of Treatment Date Care Activity Detail Author Patient Education [facility] Work Phone: Patient referral [facility] Work Phone: Payers Date Payer Category Payer Self-pay 1965 Unknown [id number] 2.16.84 [id number] 1965 Unknown [id number] 2.16.84 [id number] 1965 Unknown [id number] 2.16.84 [id number] 1967 Unknown [id number] 2.16.8 [id number] 1967 Unknown [id number] 2.16.8 [id number] 1959 Unknown [id number] Unknown [id number] 2.16.8 [id number] Unknown [id number] 2.16.8 [id number] Social History Date Type Detail Facility Sex Assigned At [facility] Other Start: 12-25-2022 Tobacco smoking stat [facility] Ex-smoker (finding) [facility] Start: 1965 Sex Assigned At Male F [facility] Start: 03-24-2023 Tobacco smoking stat [facility] Never smoked tobacco (finding) [facility] Evaluation note 10-26-2021 Note Date & Type Note Facility 10-26-2021 Evaluation note Encounter Date Diagnosis Assessment Notes October, Sprain of left wrist, subsequent encounter (ICD-10 - S63.502D) Continue to wear the left wrist splint. Take Aleve as needed for pain and swelling. Ice and elevate your wrist 2-3 times a day. Follow-up with orthopedics for further evaluation, you will be contacted by occupational health with an appointment. You may return to work however you must wear your wrist splint at work. [employer] Other Clinical Note 09-28-2020 Note Date & Type Note Facility 09-28-2020 Note EXAM: XR CHEST 1 V HISTORY: COVID-19 COMPARISON: None. TECHNIQUE: Chest one view portable FINDINGS: There are low lung volumes. There are minimal bibasilar opacities that are relatively symmetrical. No lobar consolidation, pleural effusion, or pneumothorax. Bony vasculature is normal. Heart size within normal limits. IMPRESSION: 1. Expiratory chest. Mild bibasilar opacities favoring atelectasis, but given patient's history cannot exclude small areas of pneumonitis. There is no lobar consolidation or pleural effusion. Recommend clinical and radiographic follow-up if symptoms persist or worsen. Electronically authenticated by: KARIE FIGUEROA Date: 2020-09-28 13:53 [facility] Evaluation note Note Date & Type Note Facility Evaluation note No assessment information availa ble [facility] Work Phone: History general Narrative - Reported Note Date & Type Note Facility History general Narrative - Reported Type Medical History high blood pressure Medical History high cholesterol Medical History Gout Medical History diabetes mallitus Surgical History collapsed lung in the [facility] Other Hospital Discharge instructions Note Date & Type Note Facility Hospital Discharge instructions Additional Instructions Follow up with your primary care doctor Return to the ED if you develop worsening symptoms or concerns [facility] Work Phone: Hospital Discharge instructions Note Date & Type Note Facility Hospital Discharge instructions Additional Instructions Quarantine/masking guidelines discussed. He is six days from the onset of symptoms and may return to work tomorrow. [facility] Work Phone: Summary Purpose Family History No Family History Records FoundNo Family History Records FoundNo Family History Records Found Advance Directives No Advanced Directives Records Found Advance Directive Response Recorded Date/ Time Advance Directives No December 25 12:04pm Chief Complaint and Reason for Visit Chief Complaint chest pain, sent by Chief Complaint chest pain, sent by dr frost Additional Source Comments (unrecognized sect ion and content) No Status Records FoundNo Status Records FoundNo Status Records Found INFORMATION SOURCE (unrecogn ized section and content) DATE CREATED AUTHOR 08/29/2021 [facility] DATE CREATED AUTHOR AUTHOR'S ORGANIZ ATION 04/04/2023 [facility] DATE CREATED AUTHOR AUTHOR'S ORGANIZ ATION 07/28/2023 [facility] REASON FOR VISIT (unrecogniz ed section and content) [facility] FOLLOW UP Care Teams (unrecognized sec tion and content) Team Status: Active Member Role Status Dates Rajan Andersen , DO Primary Care Provider Active Team Status: Inactive Member Role Status Dates Rajan Andersen , DO Primary Care Provider Active Ish Carty , DO Emergency Provider Active Team Status: Inactive Member Role Status Dates Rajan Andersen DO Primary Care Provider Active Lupe Gavin APRN Emergency Provider Active Goals (unrecognized section and content) Goals may be documented in a n alternate section FOR RECORDS PERTAINING TO PATIENTS WHO ARE OR HAVE BEEN ENROLLED IN A CHEMICAL DEPENDENCY/SUBSTANCEABUSE PROGRAM, SOME INFORMATION MAY BE OMITTED. This clinical summary was aggregated from multiple sources. Caution should be exercised in using it in the provision of clinical care. This summary normalizes information from multiple sources, and as a consequence, information in this document may materially change the coding, format and clinical context of patient data. In addition, data may be omitted in some cases. CLINICAL DECISIONS SHOULD BE BASED ON THE PRIMARY CLINICAL RECORDS. [facility] [employer] provides no warranty or guarantee of the accuracy or completeness of information in this document.
== END 2023-08-15 08:43 | disposition home or self-care (01) ==
LOC: EC 08:42
PROVIDERS: Visit Provider Orthopaedic Surgery Orthopaedic Surgery of the Spine
DX: M54.2 Cervicalgia (principal)
CPT/HCPCS: 72050